=== PATIENT | male | born 1990 | race African-American/Black ===

== ENCOUNTER 2019-12-10 17:49 | Emergency (ER) | payer SELFPAY ==
--- NOTE | 2019-12-10 19:21 | EDM.PDOC ---
ED HPI GENERAL MEDICAL PROBLEM - General Chief Complaint: Back Pain or Injury Stated Complaint: BACK PAIN & STOMACH PAIN Time Seen by Provider: 12/10/19 19:04 Source of Information: Reports: Patient History Limitations: Reports: No Limitations - History of Present Illness INITIAL COMMENTS - FREE TEXT/NARRATIVE: Mr. Segura is a very pleasant 29-year-old gentleman with no chronic medical problems and no past surgical history, who now presents to the ED stating that he has been experiencing mild, intermittent pain felt between his scapula since 12/08/2019. The pain only occurs if he is reaching or, sometimes, when he is standing, but not if he is supine or resting. His pain is not made worse if he takes a deep breath. He also reports mild pain to his upper ab dominal rectus muscles. No previous symptoms prior to Friday. The patient reports doing 40 push-ups a day, 5 days a week, which she states he has been doing for a long time. 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 The patient states that he took some ibuprofen last night, which made him feel considerably better, however, his pain was back again this morning. Here in the ED, the patient is found to be hemodynamically stable, afebrile, saturating 100% on room air. Other than his intrascapular and upper abdominal pain, the patient denies having a recent fever, chills, sore throat, ear pain, nasal or sinus congestion, cough, dyspnea, chest pain, palpitations, nausea, vomiting, constipation, diarrhea, urinary symptoms, recent weight gain or weight loss, recent bloody bowel movements or black bowel movements, recent joint aches, headaches, or rashes. The patient does not have a PCP. Other Treatments [employer]: advil Upper Back Pain Score (Numeric/FACES): 6 Upper Abdomen Pain Score (Numeric/FACES): 2 - Related Data Allergies Allergy/AdvReac Type Severity Reaction Status Date / Time No Known Allergies Allergy Verified 12/10/19 18:31 Home Meds: Home Meds Orphenadrine [Norflex] 1 tab PO Q12H PRN #14 tab.er 12/10/19 [Rx] Past Medical History - Past Health History Medical/Surgical History: Denies Medical/Surgical History Social & Family History - Tobacco Use Smoking Status *Q: Never Smoker - Caffeine Use Caffeine Use: Reports: Coffee - Alcohol Use Alcohol Use History: Yes Alcohol Use Frequency: Socially - Recreational Drug Use Recreational Drug Use: No - Living Situation & Occupation Living situation: Reports: Single, Alone Occupation: Employed (Convenience store) ED ROS GENERAL - Review of Systems Review Of Systems: Comprehensive ROS is negative, except as noted in HPI. ED EXAM, UPPER BACK/NECK PAIN - Physical Exam Exam: See Below Exam Limited By: No Limitations General Appearance: Alert, WD/WN, No Apparent Distress Eye Exam: Bilateral Eye: EOMI, Normal Inspection Ears Exam: Normal External Exam, Hearing Grossly Normal Nose Exam: Normal Inspection Throat/Mouth Exam: Normal Inspection, Normal Lips, Normal Voice, No Airway Compromise Head Exam: Atraumatic, Normocephalic Neck Exam: Non-Tender, Full Range of Motion, Normal Alignment, Normal Inspection Cardiovascular/Respiratory: Regular Rate, Rhythm, No M/R/G, Normal Peripheral Pulses, No JVD, Normal Breath Sounds, No Respiratory Distress GI/Abdominal: Normal Bowel Sounds, Soft, Non-Tender (including the upper rectus muscles), No Organomegaly, No Distention, No Abnormal Bruit, No Mass (Male) Exam: Deferred Rectal (Males) Exam: Deferred Back Exam: Normal Inspection, Full Range of Motion, Other (The patient is able to identify the left and right parascapular musculature as the site of his pain, although the muscles are not at present tender). No: CVA Tenderness (L), CVA Tenderness (R), Vertebral Tenderness Extremities: Normal Inspection, Normal Range of Motion, No Pedal Edema, Normal Capillary Refill Neurologic: No Motor/Sensory Deficits, Alert, Oriented x 3 Psychiatric: Normal Affect Skin Exam: Normal Color, Warm/Dry Course - Vital Signs Last Recorded V/S: Last Vital Signs Temp 36.6 C 12/10/19 18:33 Pulse 63 12/10/19 18:33 Resp 20 12/10/19 18:33 BP 132/91 H 12/10/19 18:33 Pulse Ox 100 12/10/19 18:33 - Orders/Labs/Meds Meds: Medications Discontinued Medications Generic Name Dose Route Start Last Admin Trade Name Freq PRN Reason Stop Dose Admin Ibuprofen 600 mg 12/10/19 20:55 12/10/19 21:09 Motrin PO 12/10/19 20:56 600 mg ONETIME ONE Administration Orphenadrine Citrate 100 mg 12/10/19 20:55 12/10/19 21:09 Norflex PO 12/10/19 20:56 100 mg ONETIME STA Administration - Re-Assessments/Exams Free Text/Narrative Re-Assessment/Exam: 12/10/19 19:18 As above, the patient has had 2 days of intermittent parascapular pain with various movements, such as reaching. He is currently asymptomatic, although the patient is able to identify the parascapular musculature as the site of his pain. His history is most consistent with a musculoskeletal etiology, however, I have ordered a chest x-ray to rule out an anatomic abnormality. I anticipate that will be negative, and if so, I will start the patient on Norflex, to be taken with [id number] ibuprofen. 12/10/19 20:54 2-view chest x-ray is read by Dr. Hernandez as: 1. Nothing acute is seen on 2 view chest x-ray. 12/10/19 20:57 Chest x-ray results discussed with the patient. As above, the patient's pain appears to be due to a muscle spasm. I will start him on Norflex and ibuprofen here, and submit a prescription to the pharmacy of his choice, that he can take along with [id number] ibuprofen. I expect that he will be feeling all better within a couple of days. Departure - Departure Time of Disposition: 20:58 Disposition: Home, Self-Care 01 Condition: Good Clinical Impression: Back muscle spasm - Discharge Information *PRESCRIPTION DRUG MONITORING PROGRAM REVIEWED*: Not Applicable *COPY OF PRESCRIPTION DRUG MONITORING REPORT IN PATIENT SHIRA: Not Applicable Prescriptions: Orphenadrine [Norflex] 1 tab PO Q12H PRN #14 tab.er PRN Reason: Muscle Spasm Instructions: Muscle Cramps and Spasms, [id number] Referrals: PCP,None [Primary Care Provider] - Forms: ED Department Discharge Additional Instructions: You were seen in the emergency room for intermittent pain between your shoulder blades, particularly with certain motions, such as reaching. Work-up in the ER included a chest x-ray, which returned completely normal. You do not have pneumonia or collapsed lung. Based on your history, physical exam, and ER chest x-ray, the cause of your back pain is most likely due to a muscle spasm. You have been started on the muscle relaxant Norflex, and a prescription for Norflex has been sent to the [facility], located just south and across the [address] from [facility]. Take 1 tablet of Norflex every 12 hours, starting tomorrow morning, 12/11/2019, as prescribed. Norflex works well with ibuprofen. We recommend that you take 3 tablets (600 mg) of [id number] ibuprofen up to every 8 hours, with food, as needed for discomfort. If any other problems, please do not hesitate to return to the ER. Sepsis Event Note (ED) - Evaluation Sepsis Screening Result: No Definite Risk - Focused Exam Vital Signs: Vital Signs Temp Pulse Resp BP Pulse Ox 12/10/19 18:33 36.6 C 63 20 132/91 H 100
--- NOTE | 2019-12-10 20:22 | CR ---
Chest: 2 views of the chest were obtained. Comparison: No prior chest imaging is available. Heart size and mediastinum are normal. Lungs are clear with no acute parenchymal change. Bony structures appear within normal limits. Impression: 1. Nothing acute is seen on 2 view chest x-ray. Diagnostic code #1 This report was dictated in MDT
[2019-12-10] MEDS ORDERED: Ibuprofen 600 MG Tab PO ONE (20:55)
[2019-12-10] MEDS ORDERED: Orphenadrine 100 MG Tab.ER PO STA (20:55)
== END 2019-12-10 21:11 | disposition home or self-care (01) ==
LOC: JD.ED 17:49
DX: M62.830 Muscle spasm of back (principal)
CPT/HCPCS: 71046; 99283; A9270